=== PATIENT | male | born 1965 | race Caucasian/White ===

== ENCOUNTER → 2016-12-21 | Outpatient (CLI) | payer OTHER ==
[~2016-12-21] MED LIST: ASPIRIN CHEWABL81 MG PO; ASPIRIN325 M2 PO; CEFTRIAXON2 GM/50 ML IV; HYDROCODONE BIT1 T11 PO; HYDROCODONE BIT1 T20 PO; KLOR-CON M2020 ME1 PO; MECLOFENAMATE PO; PREDNISONE20 M1 PO
== END | disposition home or self-care (01) ==
LOC: RAD 10:23
DX: M25.471 Effusion, right ankle (principal)

== ENCOUNTER 2017-07-03 04:04 | Emergency (ER) | payer OTHER ==
[~2017-07-03] VITALS: Ht 167.6 cm; Wt 100.2 kg
[2017-07-03] MEDS ORDERED: KETOROLAC10 MG PO (04:36)
[2017-07-03] MEDS ORDERED: CLINDAMYCIN HC300 MG PO (04:36)
== END 2017-07-03 04:59 | disposition home or self-care (01) ==
LOC: ED 04:04
DX: K04.01 Reversible pulpitis (principal); K02.9 Dental caries, unspecified; I10 Essential (primary) hypertension; Z87.891 Personal history of nicotine dependence; Z79.82 Long term (current) use of aspirin; Z79.899 Other long term (current) drug therapy

== ENCOUNTER 2018-11-26 | Emergency (ER) | payer OTHER ==
[~2018-11-26] VITALS: Ht 177.8 cm; Wt 90.7 kg
[~2018-11-26] MED LIST changes: +CLINDAMYCIN HC300 MG PO; +KETOROLAC10 MG PO
[2018-11-26] MEDS ORDERED: IBU800 MG PO (01:17)
== END 2018-11-26 01:25 | disposition home or self-care (01) ==
LOC: ED
DX: S46.912A Strain of unspecified muscle, fascia and tendon at shoulder and upper arm level, left arm, initial encounter (principal); Z87.891 Personal history of nicotine dependence; Z79.899 Other long term (current) drug therapy; Z79.82 Long term (current) use of aspirin; Y08.89XA Assault by other specified means, initial encounter; Y93.89 Activity, other specified; Y92.89 Other specified places as the place of occurrence of the external cause; Y99.8 Other external cause status

== ENCOUNTER 2020-02-07 17:36 | Emergency (ER) | payer OTHER ==
[~2020-02-07] VITALS: Wt 102.1 kg
[~2020-02-07 17:36] MED LIST changes: +IBU800 MG PO
[2020-02-07] MEDS ORDERED: CLINDAMYCIN HC300 MG PO (19:10)
== END 2020-02-07 19:35 | disposition home or self-care (01) ==
LOC: ED 17:36
DX: S61.217A Laceration without foreign body of left little finger without damage to nail, initial encounter (principal); Z79.899 Other long term (current) drug therapy; X58.XXXA Exposure to other specified factors, initial encounter; Y93.89 Activity, other specified; Y92.89 Other specified places as the place of occurrence of the external cause; Y99.8 Other external cause status

== ENCOUNTER 2024-11-22 23:03 | Emergency (ER) | payer OTHER ==
[~2024-11-22] VITALS: Ht 167.6 cm; Wt 83.9 kg
[2024-11-22] MEDS ORDERED: SODIUM CHLORIDE 0.9% 1,000 ML IV ONE (23:25)
[2024-11-22] MEDS ORDERED: Tdap Vaccine 0.5 ML SYR (Adult Vaccine) IM ONE (23:25)
[2024-11-22 23:59] LABS: BASO # 0.0 10*3/uL (0.0-0.1); BASO % 0.6 % (0.0-1.0); EOS # 0.3 10*3/uL (0.0-0.4); EOS % 4.0 % (1.0-4.0); MEAN CELL VOLUME 87.7 fl (80.0-94.0); MEAN CORPUSCULAR HGB 30.1 pg (27.0-31.0); MEAN PLATELET VOLUME 9.5 fl (9.6-12.3); MONO # 0.5 10*3/uL (0.1-1.0); MONO % 7.1 % (3.0-9.0); NEUT # 4.6 10*3/uL (2.3-7.9); NEUT % 67.5 % (47.0-73.0); NUCLEATED RED BLOOD CELL 0.0 % (0.0-0.0); NUCLEATED RED BLOOD CELL 0.0 10*3/uL (0.0-0.0); PLATELET COUNT AUTOMATED 145 10*3/uL (130-400); RED CELL DISTRI WIDTH 12.1 % (0-14.5)
[2024-11-23 00:24] LABS: BUN 8 mg/dl (9-23); ETHYL ALCOHOL 43.3 mg/dl (<3); SGPT/ALT 34 U/L (5-49)
[2024-11-23] MEDS ORDERED: Ondansetron Hydrochloride 4 MG/2 ML VIAL IV ONE (01:25)
== END 2024-11-23 03:20 | disposition short-term general hospital (02) ==
LOC: ED 23:03
PROVIDERS: Emergency Medicine
DX: S06.6XAA Traumatic subarachnoid hemorrhage with loss of consciousness status unknown, initial encounter (principal); S00.83XA Contusion of other part of head, initial encounter; S00.31XA Abrasion of nose, initial encounter; Z79.899 Other long term (current) drug therapy; Z79.82 Long term (current) use of aspirin; Z87.891 Personal history of nicotine dependence; Z98.890 Other specified postprocedural states; Y04.2XXA Assault by strike against or bumped into by another person, initial encounter; Y93.89 Activity, other specified; Y92.89 Other specified places as the place of occurrence of the external cause; Y99.8 Other external cause status

== ENCOUNTER → 2024-12-05 | Outpatient (CLI) | payer OTHER | END | disposition home or self-care (01) | LOC: CT 10:43 | PROVIDERS: ATTEND Physician Assistant | DX: S06.6XAA Traumatic subarachnoid hemorrhage with loss of consciousness status unknown, initial encounter (principal); X58.XXXA Exposure to other specified factors, initial encounter; Y93.89 Activity, other specified; Y92.89 Other specified places as the place of occurrence of the external cause; Y99.8 Other external cause status ==

== ENCOUNTER 2024-12-21 09:17 | Emergency (ER) | payer OTHER ==
[~2024-12-21] VITALS: Ht 167.6 cm; Wt 83.9 kg
[2024-12-21] MEDS ORDERED: Ondansetron Hydrochloride 4 MG/2 ML VIAL IV ONE (09:55)
[2024-12-21 10:19] LABS: BASO # 0.0 10*3/uL (0.0-0.1); BASO % 0.9 % (0.0-1.0); EOS # 0.2 10*3/uL (0.0-0.4); EOS % 4.3 % (1.0-4.0); MEAN CELL VOLUME 86.5 fl (80.0-94.0); MEAN CORPUSCULAR HGB 30.1 pg (27.0-31.0); MEAN PLATELET VOLUME 9.6 fl (9.6-12.3); MONO # 0.4 10*3/uL (0.1-1.0); MONO % 7.5 % (3.0-9.0); NEUT # 2.7 10*3/uL (2.3-7.9); NEUT % 56.8 % (47.0-73.0); NUCLEATED RED BLOOD CELL 0.0 % (0.0-0.0); NUCLEATED RED BLOOD CELL 0.0 10*3/uL (0.0-0.0); PLATELET COUNT AUTOMATED 144 10*3/uL (130-400); RED CELL DISTRI WIDTH 11.9 % (0-14.5)
[2024-12-21 10:38] LABS: BUN 8 mg/dl (9-23); CPK 81 U/L (34-171)
[2024-12-21 10:39] LABS: ETHYL ALCOHOL < 3.0 mg/dl (<3)
[2024-12-21] MEDS ORDERED: Meclizine25 MG PO (15:41)
[2024-12-21] MEDS ORDERED: Ondansetron4 MG PO (15:41)
[2024-12-21] MEDS ORDERED: PERCOCET 5-3251 EACH PO (15:41)
== END 2024-12-21 15:52 | disposition home or self-care (01) ==
LOC: ED 09:17
PROVIDERS: Emergency Medicine
DX: S06.0X0A Concussion without loss of consciousness, initial encounter (principal); S22.31XA Fracture of one rib, right side, initial encounter for closed fracture; I10 Essential (primary) hypertension; Z79.899 Other long term (current) drug therapy; R42 Dizziness and giddiness; Z79.82 Long term (current) use of aspirin; Z87.891 Personal history of nicotine dependence; X58.XXXA Exposure to other specified factors, initial encounter; Y93.89 Activity, other specified; Y92.89 Other specified places as the place of occurrence of the external cause; Y99.8 Other external cause status

== ENCOUNTER → 2025-01-24 | Outpatient (CLI) | payer OTHER ==
[~2025-01-24] MED LIST changes: +Meclizine25 MG PO; +Ondansetron4 MG PO; +PERCOCET 5-3251 EACH PO
== END | disposition home or self-care (01) ==
LOC: CT 12:55
PROVIDERS: ATTEND Neurological Surgery
DX: S09.90XA Unspecified injury of head, initial encounter (principal); I67.82 Cerebral ischemia; X58.XXXA Exposure to other specified factors, initial encounter; Y93.89 Activity, other specified; Y92.89 Other specified places as the place of occurrence of the external cause; Y99.8 Other external cause status